=== PATIENT | female | born 1975 | race Caucasian/White ===

== ENCOUNTER 2016-11-04 14:17 | Day surgery (SDC) ==
[2016-11-04] MEDS ORDERED: NS 1,000 ML ONE (14:39)
[2016-11-04 15:54] VITALS: BP 104/65
== END 2016-11-04 15:55 | disposition home or self-care (01) ==
LOC: INF 14:17
PROVIDERS: ATTEND Internal Medicine
DX: E86.1 Hypovolemia (principal)
CPT/HCPCS: 96360; J7030